=== PATIENT | female | born 1995 | race Caucasian/White ===

== ENCOUNTER 2024-11-06 10:46 | Outpatient (CLI) | payer BC, SELFPAY ==
--- OUTSIDE RECORDS SUMMARY | 2024-11-06 11:48 | XMS_ITS | Referral Summary ---
Author Organization [address] Address [address] [place] [id number] Care Team Providers Care Ordnance Handler Name Role Phone Tim Womack Primary Care Provider [phone] Allergies Active Allergy Reactions Criticality Noted Date Comments Hal Rash Medium 11/27/2022 Medications NuvaRing 0.12-0.015 mg/24 hr vaginal ring 3 Active spironolactone (ALDACTONE) 50 mg tablet 3 Active SUMAtriptan (IMITREX) 25 mg tabletIndicatio ns:Migraine Take 1 tablet (25 mg total) by mouth once as needed for migraine May repeat dose once in 2 hours if no relief. Do not exceed 2 doses in 24 hours. Active azithromycin (ZITHROMAX) 250 mg tablet Take 2 tabs (500 mg) by mouth today, than 1 tab (250 mg) daily for 4 days. 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 Gender Identity Not on file Sexual Orientation Not on file Last Filed Vital Signs Vital Sign Reading Time Taken Comments Blood Pressure 123/76 02/26/2024 10:39 AM CDT Pulse 70 02/26/2024 10:39 AM CDT Temperature 36.8 C (98.2 F) 02/26/2024 10:39 AM CDT Respiratory Rate 18 02/26/2024 10:39 AM CDT Oxygen Saturation 98% 02/26/2024 10:39 AM CDT Inhaled Oxygen Concentration - - Weight 68.3 kg (150 lb 8 oz) 02/26/2024 10:39 AM CDT Height 160 cm (5' 2.99) 02/26/2024 10:39 AM CDT Body Mass Index 26.67 02/26/2024 10:39 AM CDT Plan of Treatment Not on file Insurance [employer] [place] Care Teams Ordnance Handler Relationship Specialty Start Date End Date Tim Womack PA [address] [place] [address] PCP - General Discharge Coordinator 11/27/22
--- OUTSIDE RECORDS SUMMARY | 2024-11-06 11:48 | XMS_ITS | Clinical Summary ---
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 [employer] Gender Identity Not on file Sexual Orientation Not on file Obstetrics History Last Filed Vital Signs Vital Sign Reading [...] 02/26/2024 10:39 AM CDT Plan of Treatment Health Maintenance Due Date Last Done Comments Cervical Cancer Screening 1997 Depression Screening 1997 Hepatitis C Screening 1997 DTaP/Tdap/Td Vaccine (1 - Tdap) 2008 Varicella Vaccines (1 of 2 - 13+ 2-dose series) 2010 Hepatitis B Screening 08/27/2015 Regular Well Visit/Exam 18-64 08/27/2015 Influenza Vaccine (Season Ended) 2025 01/16/2017, 03/02/2016, 03/04/2015 HPV Vaccines Aged Out No longer eligi ble based on patient's age to complete this topic Pneumococcal vaccine <65 Aged Out No longer eligible based on patient's age to complete this topic Insurance [employer] [facility] Care Teams Electric Operator Relationship Specialty Start Date End Date Tim Womack PA [address] [facility] [place] [address] PCP - General Psychic Reader 11/27/22
--- OUTSIDE RECORDS SUMMARY | 2024-11-06 11:48 | XMS_ITS | Clinical Summary ---
Author Organization [facility] Address [address] [place] [address] Care Team Providers Care Rib Cutter Name Role Phone Unavailable Primary Care Provider Unavailabl e Source Comments [facility],non-owned Affiliates and Associated Physician Practices is amultiple site organization consisting of ambulatory clinics and hospital sitesin [place], [place], [place] and [place]. This disclosure is being madepursuant to the Care Everywhere program and may not contain all information available regarding this patient. Last updated 18.[facility] Allergies No known active allergies Medications * Be aware that medications may not be up to date on this document. Alwaysverify current medications with the patient. valACYclovir (VALTREX) 1 GM tablet Take 2 (two) tablets by mouth 2 times daily 4 tablet 09/14/2020 Active mupirocin (BACTROBAN) 2 % ointment Apply to affected area 3 times daily 22 g 09/14/2020 Active Active Problems No known active problems Social History Tobacco Use Types Packs/Day Years Used Date Smoking Tobacco: Never Assessed Comments Unknown Sex and Gender Information Value Date Recorded Sex Assigned at Not on file Legal Sex Female 9:31 AM CDT Gender Identity Not on file Sexual Orientation Not on file Last Filed Vital Signs Vital Sign Reading Time Taken Comments Blood Pressure - - Pulse 70 09/14/2020 4:15 PM CDT Temperature 36.7 C (98 F) 09/14/2020 4:15 PM CDT Respiratory Rate 20 09/14/2020 4:15 PM CDT Oxygen Saturation - - Inhaled Oxygen Concentration - - Weight - - Height - - Body Mass Index - - Plan of Treatment Health Maintenance Due Date Last Done Comments HIV SCREENING 2012 HEPATITIS C SCREENING 08/22/2015 DTAP/TDAP/TD VACCINES (1 - Tdap) 2016 HEPATITIS B VACCINE (1 of 3 - 19+ 3-dose series) 2016 COVID-19 VACCINE (1 - 2023-2 5 season) 2024 DEPRESSION SCREENING 05/24/2024 INFLUENZA VACCINE (Season Ended) 2025 ZOSTER VACCINE (1 of 2) 08/27/2047 HIB VACCINE Aged Out No longer eligi ble based on patient's age to complete this topic HPV VACCINE Aged Out No longer eligi ble based on patient's age to complete this topic MENINGOCOCCAL (Group B) VACC INE SHARED DECISION-MAKING Aged Out No longer eligibl e based on patient's age to complete this topic MENINGOCOCCAL GROUPS A/C/Y/W VACCINE Aged Out No longer eligible b ased on patient's age to complete this topic PNEUMOCOCCAL VACCINE Aged Out No long er eligible based on patient's age to complete this topic Insurance [address] [place] [address] [facility] [address] [place] [address] [facility] [place]
== END 2024-11-06 10:47 | disposition home or self-care (01) ==
PROVIDERS: PCP Nurse Practitioner Family; Visit Provider Otolaryngology Otolaryngology/Facial Plastic Surgery
DX: H91.93 Unspecified hearing loss, bilateral (principal)
CPT/HCPCS: 92557; 92567